=== PATIENT | female | born 1960 | race Two or more races ===

== ENCOUNTER 2017-08-01 14:32 | Emergency (ER) | payer OTHER ==
[~2017-08-01] VITALS: Ht 152.4 cm; Wt 65.8 kg
[2017-08-01 16:35] VITALS: BP 133/87
== END 2017-08-01 16:36 | disposition home or self-care (01) ==
LOC: ER 14:35
DX: S00.33XA Contusion of nose, initial encounter (principal); W21.06XA Struck by volleyball, initial encounter; Y93.89 Activity, other specified; Y92.89 Other specified places as the place of occurrence of the external cause; Y99.9 Unspecified external cause status
CPT/HCPCS: 70160; 99284; A4606; Z7610

== ENCOUNTER 2017-12-08 20:38 | Emergency (ER) | payer SELFPAY ==
--- NOTE | 2017-12-08 22:50 | NUR ---
CALLED NO ANSWER IN [place]
--- NOTE | 2017-12-08 23:09 | NUR ---
CALLED NO DAWSON IN [place]
== END 2017-12-08 23:11 | disposition left against medical advice (07) ==
LOC: ER 20:38
DX: Z53.21 Procedure and treatment not carried out due to patient leaving prior to being seen by health care provider (principal)